=== PATIENT | male | born 1955 | race Caucasian/White ===

== ENCOUNTER 2017-02-07 10:04 | Emergency (ER) | payer OTHER ==
[~2017-02-07] VITALS: Ht 185.4 cm; Wt 107.1 kg
[~2017-02-07 10:04] MED LIST: ASPIRIN325 MG PO; ASPIRIN81 M2 PO; ATORVASTATIN CA40 MG PO; CARVEDILOL6.25 MG PO; Coreg PO; ENOXAPARIN100 MG/1 M SC; EXTRA STRENGTH500 M1 PO; Ecotrin PO; IMODIUM MS REL1 EACH PO; LOVENOX100 MG/1 M SC; LOW DOSE ASPIRI81 M1 PO; Lipitor PO; PANTOPRAZOLE SO40 MG PO; Plavix PO; Protonix PO; WARFARIN SODIUM5 MG PO; XARELTO10 MG PO
[2017-02-07 10:57] LABS: HEMATOCRIT 38.8 % (38.0-50.0); MCH 30.2 PG (29.0-34.0); MCV 94.4 FL (86-99); MEAN PLAT.VOLUME 9.4 uM^3 (9.0-12.4); PLATELET COUNT 233 K/uL (156-360); RBC DIS.WIDTH-CV 15.5 % (11.8-14.6); RBC DIS.WIDTH-SD 53.7 % (39-53); RED BLOOD COUNT 4.11 M/uL (4.00-5.50); WHITE BLOOD COUNT 3.7 K/uL (4.1-10.2)
[2017-02-07 11:05] LABS: CHLORIDE 104 mEq/L (99-109); SODIUM 139 mEq/L (136-147)
[2017-02-07 11:07] LABS: GLUCOSE 108 mg/dL (70-99)
[2017-02-07 11:08] LABS: ANION GAP 9 MEQ/L (2-14)
[2017-02-07 11:11] LABS: GFR ESTIMATE (CALCULATED) > 59 mL/min/
[2017-02-07 11:12] LABS: UREA NITROGEN (BUN) 11 mg/dL (9-23)
[2017-02-07 13:38] LABS: BILIRUBIN NEGATIVE; BLOOD NEGATIVE; COLOR AMBER ((YELLOW)); GLUCOSE (STRIP) NEGATIVE; KETONES NEGATIVE; LEUKOCYTES NEGATIVE; NITRITE NEGATIVE; PROTEIN (STRIP) NEGATIVE
[2017-02-07 13:41] LABS: ADD MIUA? NO; UCUL ADDED? NO
[2017-02-07] MEDS ORDERED: NORCO 5/3251 TABLET PO (16:39)
[2017-02-07 16:57] VITALS: BP 155/75
== END 2017-02-07 16:58 | disposition home or self-care (01) ==
LOC: EME 10:04
DX: C18.9 Malignant neoplasm of colon, unspecified (principal); Z79.899 Other long term (current) drug therapy; I10 Essential (primary) hypertension; E78.5 Hyperlipidemia, unspecified; I25.2 Old myocardial infarction; Z86.711 Personal history of pulmonary embolism; Z79.01 Long term (current) use of anticoagulants; Z95.5 Presence of coronary angioplasty implant and graft; Z79.82 Long term (current) use of aspirin
CPT/HCPCS: 74176; 80048; 81003; 85027; 99281; 99284

== ENCOUNTER → 2017-09-01 | Outpatient (CLI) | payer OTHER ==
[~2017-09-01] MED LIST changes: +NORCO 5/3251 TABLET PO; +PROCHLORPERAZIN10 MG PO; +XARELTO20 MG PO
== END | disposition home or self-care (01) ==
LOC: EDSTATUS 08-31 09:00 → RAD 08-31 09:00
PROC: 0W993ZZ Drainage of Right Pleural Cavity, Percutaneous Approach (ICD-10-PCS; principal; 2017-09-01)
DX: C18.9 Malignant neoplasm of colon, unspecified (principal); J90 Pleural effusion, not elsewhere classified
CPT/HCPCS: 76942; 88108; 88305; 88341 TC; 88342 TC

== ENCOUNTER → 2017-09-08 | Outpatient (CLI) | payer OTHER ==
[~2017-09-08] MED LIST changes: +AZITHROMYCIN250 MG1 PO
== END | disposition home or self-care (01) ==
LOC: OPR 12:52 → EDSTATUS 13:00 → OPR 13:00
PROC: 0W9930Z Drainage of Right Pleural Cavity with Drainage Device, Percutaneous Approach (ICD-10-PCS; principal; 2017-09-08)
DX: C18.9 Malignant neoplasm of colon, unspecified (principal); J91.0 Malignant pleural effusion; M54.9 Dorsalgia, unspecified; C78.7 Secondary malignant neoplasm of liver and intrahepatic bile duct; C78.6 Secondary malignant neoplasm of retroperitoneum and peritoneum; Z79.82 Long term (current) use of aspirin; Z79.01 Long term (current) use of anticoagulants
CPT/HCPCS: J3010

== ENCOUNTER → 2017-09-14 | Outpatient (CLI) | payer OTHER | END | disposition home or self-care (01) | LOC: OPR 09:51 → EDSTATUS 11:00 | PROVIDERS: Internal Medicine | PROC: 0B9K30Z Drainage of Right Lung with Drainage Device, Percutaneous Approach (ICD-10-PCS; principal; 2017-09-14) | DX: C78.1 Secondary malignant neoplasm of mediastinum (principal); C78.00 Secondary malignant neoplasm of unspecified lung; J91.0 Malignant pleural effusion; C78.2 Secondary malignant neoplasm of pleura; C78.7 Secondary malignant neoplasm of liver and intrahepatic bile duct; C78.6 Secondary malignant neoplasm of retroperitoneum and peritoneum; C18.9 Malignant neoplasm of colon, unspecified; Z79.82 Long term (current) use of aspirin; Z79.01 Long term (current) use of anticoagulants | CPT/HCPCS: 71250; 82948 ==

== ENCOUNTER → 2017-10-20 | Outpatient (CLI) | payer OTHER | END | disposition home or self-care (01) | LOC: RAD 10-19 13:00 | PROC: 0WJG3ZZ Inspection of Peritoneal Cavity, Percutaneous Approach (ICD-10-PCS; principal; 2017-10-20) | DX: R18.8 Other ascites (principal); C18.9 Malignant neoplasm of colon, unspecified; Z53.09 Procedure and treatment not carried out because of other contraindication | CPT/HCPCS: 76705 ==

== ENCOUNTER → 2017-11-13 | Outpatient (CLI) | payer OTHER | END | disposition home or self-care (01) | LOC: RAD 09:40 → EDSTATUS 10:00 | PROC: 0W9G3ZZ Drainage of Peritoneal Cavity, Percutaneous Approach (ICD-10-PCS; principal; 2017-11-13) | DX: R18.8 Other ascites (principal); J90 Pleural effusion, not elsewhere classified | CPT/HCPCS: 49083; 76604 ==

== ENCOUNTER → 2017-11-27 | Outpatient (CLI) | payer OTHER ==
[~2017-11-27] MED LIST changes: +TYLENOL325 M2 PO
[2017-11-27 13:22] LABS: INTER. NORMALIZED RATIO 1.4
[2017-11-27 13:25] LABS: PTT 29.2 SEC (25-37)
== END | disposition home or self-care (01) ==
LOC: OPR 11-24 09:00
PROVIDERS: Internal Medicine
PROC: 0WH933Z Insertion of Infusion Device into Right Pleural Cavity, Percutaneous Approach (ICD-10-PCS; principal; 2017-11-27)
DX: R18.8 Other ascites (principal); C18.9 Malignant neoplasm of colon, unspecified; R16.0 Hepatomegaly, not elsewhere classified; Z79.82 Long term (current) use of aspirin; Z80.1 Family history of malignant neoplasm of trachea, bronchus and lung; Z80.0 Family history of malignant neoplasm of digestive organs
CPT/HCPCS: 49406; 85610; 85730; C1729; J3010